=== PATIENT | male | born 1995 | race Two or more races ===

== ENCOUNTER 2025-07-28 09:26 | Emergency (ER) | payer OTHER, SELFPAY ==
[2025-07-28 09:49] VITALS: BP 130/77; PULSE 109; RESP 18; TEMP 38; O2SAT 97
[2025-07-28 09:54] VITALS: BP 130/77; PULSE 109; RESP 18; TEMP 38; O2SAT 97
--- NOTE | 2025-07-28 10:15 | ED.GENADUL_ITS ---
Discharge Plan Disposition Patient Disposition: Home Condition: Good Discharge Details Clinical Impression: Enlarged lymph node, Elevated LFTs Primary Care Provider: Unknown,Unknown ED Provider: Annelise Molina Discharge Instructions Additional Instructions: [place] [facility] biopsy of the pathologic appearing lymph node. You may reach [facility] at [phone] to schedule your appointment. A referral has been made to care management to help you establish care with a primary care provider. I recommend that you follow-up [facility] to continue outpatient evaluation into your symptoms and to recheck your blood work. I recommend that you avoid touching/squeezing your lymph node, as this can provide further aggravation and pain. Stable hydrated, drinking plenty of fluids throughout the day. You may continue to use ibuprofen 400 mg every 8 hours as needed for discomfort. I would recommend avoiding Tylenol and alcohol as your liver function tests are elevated. Return to emergency care if you develop new numbness/color change or weakness to the arm or if you are very worried and need to be rechecked again immediately. Referrals: Care Management [Provider Group] HPI General Date/Time Provider Initiated Documentation: 07/28/25 10:00 . HPI Narrative: Marshal is a 30-year-old male who presents to the emergency department today for evaluation of worsening right axilla abscess. He first noticed a lump in his right armpit noticed 2 weeks ago, grew from size of a cirilo to golf ball size in 4 days. He sought care at the medical center, was diagnosed with abscess. [facility] in [facility] suggested incision and drainage, but he opted for antibiotics due to ultrasound machine not working. Antibiotics ineffective, he reports that it has grown despite treatment antibiotics and warm compresses. Pain managed with Advil and Tylenol Fast Release, 1 Tylenol and 2 Advil twice daily for 10 days. Fevers have persisted, especially at night. Denies current headache, dizziness, congestion, sore throat, cough, chest pain, shortness of breath, nausea/vomiting, change in p.o. intake, abdominal pain, change in bowel or bladder function. No extremity erythema/swelling/numbness/tingling, weakness, or decreased ROM. Completed 2- week course of Bactrim as prescribed. Denies history of cancer, unusual weight loss, or other swollen lymph nodes. Denies significant past medical history such as IV drug use, immunocompromise, or recent antibiotics prior to most recent treatment. Related Data Allergies Allergy/AdvReac Type Severity Reaction Status Date / Time No Known Allergies Allergy Unverified 07/28/25 09:54 General Stated Complaint: GenMedical IRENE: 3 Exam Narrative Exam Narrative: General Appearance: Normal. Patient is alert and oriented, no acute distress Vital signs: Tachycardia noted, heart rate 109. Fever, temp 38.0 C Respiratory: Easy work of breathing, lungs clear to auscultation. Cardiovascular: Tachycardia noted, regular rhythm, normal heart sounds. Back, Musculoskeletal: Full range of motion in arms, 5/5 muscle strength. Sensation grossly intact Skin: Palpable, tender lump in right axilla proximal 3 cm diameter, tender to palpation, no fluctuance noted. Psychiatric: Normal. Course Vital Signs Vital signs: Vital Signs Temperature 38.0 C H 07/28/25 09:49 Pulse 109 H 07/28/25 09:49 Respiratory Rate 18 07/28/25 09:49 Blood Pressure 130/77 07/28/25 09:49 Pulse Oximetry 97 07/28/25 09:49 Temperature 38.0 C H 07/28/25 09:54 Temperature Source Temporal Artery Scan 07/28/25 09:54 Pulse 109 H 07/28/25 09:54 Respiratory Rate 18 07/28/25 09:54 Blood Pressure 130/77 07/28/25 09:54 Pulse Oximetry 97 07/28/25 09:54 Oxygen Delivery Method Room Air 07/28/25 09:54 Oxygen Flow Rate 0 07/28/25 09:54 Pain Level 8 07/28/25 09:54 Lab/Test Results Lab/Test Results: 07/28/25 10:01 Blood Blood Culture - Pending 07/28/25 10:01 Blood Blood Culture - Pending Medical Decision Making Initial Assessment: 30-year-old male with axillary lump, fever, and tachycardia. Differential Diagnosis includes but is not limited to: Abscess, enlarged lymph node, neoplasm ED Course: - IV Tylenol and Toradol administered. - IV fluids administered. - Pocus PERFORMED w Dr Gonzalez at bedside, no fluid collection noted consistent with abscess - CT right upper extremity ordered to further evaluate mass Independently interpreted the following tests: Inflammatory markers elevated, ESR 21, CRP 2.05. LFTs elevated, no previous available for comparison. CBC , lactate, and BMP unremarkable. CT upper extremity noted for pathological appearing lymph node to the right axilla. Marshal does not currently have a PCP. I discussed case with Dr. Langford, general surgeon. She does not perform FNA biopsies, will check with [facility] general surgery group to see if any of the surgeons there can perform this. [place] [facility] [place]. Patient overall well-appearing, post outpatient follow-up for further evaluation/management indicated. Discussed findings with patient, recommend close follow-up with PCP (referral made to help patient establish care with PCP) as well as interventional radiology at [facility]. Reviewed discharge instructions, including indications for return to emergency care. Patient voices agreement with plan of care Clinical Impression: - R Axillary lump, concerning for pathological lymph node - Elevated liver function tests Patient consented to the use of [facility] Imaging Data Radiologic Study: Radiologist's impression: PROCEDURE INFORMATION: Exam: CT Right Upper Extremity With Contrast Exam date and time: 07/28/2025 11:12 AM Age: 30 years old Clinical indication: Other: Enlarged lymph node in axilla TECHNIQUE: Imaging protocol: Computed tomography of the right upper extremity with contrast. Contrast material: OMNIPAQUE 350; Contrast volume: 100 ml; Contrast route: INTRAVENOUS (IV); COMPARISON: No relevant prior studies available. FINDINGS: Bones/joints: Skeletal structures are intact. There is no fractures. No lytic or blastic disease. Soft tissues: No edema in the muscles. No localized fluid collection or abscess. Large right axillary lymph node with lobulated borders and edematous perinodal fat. The lymph node measures 4.2 cm IMPRESSION: Abnormal study. Pathological appearing lymph node right axilla. Recommend FNA biopsy PFSH All Active Problems (Updated 07/28/25 @ 12:22 by Annelise Hylton) Elevated LFTs (Acute) Enlarged lymph node (Acute) Social History Smoking risk assessment performed?: No
[2025-07-28 10:25] LABS: Abs Immature Grans 0.06 10^3/uL (0.0-0.06); HCT 41.1 % (40.0-50.0); HGB 13.7 g/dL (13.5-17.5); Immature Grans % 0.8 %; MCH 30.1 pg (27.0-33.0); MCHC 33.3 % (32.0-36.0); MCV 90 fL (80-95); MPV 8.9 fL (8.0-11.0); Platelet Count 347 10^3/uL (130-400); RBC 4.55 10^6/uL (4.36-5.78); RDW 12.5 % (11.8-14.1); RDW-SD 41.5 fL; WBC 7.76 10^3/uL (4.4-10.8)
[2025-07-28 10:28] LABS: ESR 21 mm/hr (0-15)
[2025-07-28] MEDS: Acetaminophen 325 MG TAB 650 MG PO (10:37)
[2025-07-28] MEDS: Ketorolac 15 MG/ML VIAL IVP (10:37)
[2025-07-28] MEDS: Normal Saline 1,000 ML 1000 ML IV (10:38)
[2025-07-28 10:44] LABS: ALT 78 U/L (16-63); AST 59 U/L (15-37); Albumin 3.8 g/dL (3.4-5.0); Alkaline Phosphatase 206 U/L (46-116); Anion Gap 7.1 mmol/L (3-11); BUN 11 mg/dL (7-18); Bilirubin, Total 0.4 mg/dL (0.2-1.0); C-Reactive Protein 2.05 mg/dL (<or=0.5); CO2 28.9 mmol/L (21.0-32.0); Calcium 8.7 mg/dL (8.5-10.1); Chloride 101 mmol/L (98-107); Estimated GFR 102.55 (mL/min/1.73m2); Glucose 99 mg/dL (74-106); Potassium 4.2 mmol/L (3.5-5.1); Sodium 137 mmol/L (136-145); Total Protein 8.1 g/dL (6.4-8.2)
--- NOTE | 2025-07-28 10:52 | DI.CT_ITS ---
Exam(s) CT UPPER EXTREMITY RT W EXAM: CT UPPER EXTREMITY RT W CLINICAL HISTORY: enlarged lymph node in axilla (CT just axilla) TECHNIQUE: Imaging Protocol: Axial computed tomography images with coronal and sagittal reformatted images were created and reviewed. CONTRAST MATERIAL: Intravenous: Omnipaque 350 Contrast volume:100 contrast route:IV - COMPARISON: US POCUS EXAM from 07/28/2025 FINDINGS: SOFT TISSUES: There is an enlarged pathologic appearing lymph node in the right axilla which measures approximately 4 x 2.5 x 3 cm. Non uniform density both enhancement and hypodense internal area noted. There is surrounding streaking. OSSEOUS: No significant osseous findings. IMPRESSION: Abnormal pathologic appearing lymph node in the right axilla. Surrounding streaking. Correlation with clinical history recommended. This may be an infected lymph node or neoplastic lymph node or a combination thereof. Recommend sampling RADIATION DOSE DELIVERED: 233.42mGy.cm Total DLP DATA REPOSITORY: All CT scans at this facility are submitted to the National Radiology Data Registry (NRDR) Dose Index Registry (DIR) with the [employer] (ACR). RADIATION OPTIMIZATION: All CT scans at this facility use at least one of these dose optimization techniques: automated exposure control; mA and/or kV adjustment per patient size (includes targeted exams where dose is matched to clinical indication); or iterative reconstruction.
[2025-07-28] MEDS: Lidocaine/Epinephri/Tetracaine Topical Gel 3 ML TP (10:58)
[2025-07-28] MEDS: Normal Saline Flush 10 ML SYR IVP (11:10)
[2025-07-28] MEDS: Omnipaque 350 MG/ML 100 ML BTL IJ (11:12)
[2025-07-28] MEDS: Normal Saline - Diluent 50 ML VIAL IJ (11:12)
--- NOTE | 2025-07-28 11:49 | DI.VRAD_ITS ---
PROCEDURE INFORMATION: Exam: CT Right Upper Extremity With Contrast Exam date and time: 07/28/2025 11:12 AM Age: 30 years old Clinical indication: Other: Enlarged lymph node in axilla TECHNIQUE: Imaging protocol: Computed tomography of the right upper extremity with contrast. Contrast material: OMNIPAQUE 350; Contrast volume: 100 ml; Contrast route: INTRAVENOUS (IV); COMPARISON: No relevant prior studies available. FINDINGS: Bones/joints: Skeletal structures are intact. There is no fractures. No lytic or blastic disease. Soft tissues: No edema in the muscles. No localized fluid collection or abscess. Large right axillary lymph node with lobulated borders and edematous perinodal fat. The lymph node measures 4.2 cm IMPRESSION: Abnormal study. Pathological appearing lymph node right axilla. Recommend FNA biopsy. Dictated and Authenticated by: Matt García MD. Orderin Arsalan Castelan MD
[2025-07-28 12:18] VITALS: BP 111/66; PULSE 92; TEMP 37
[2025-07-28 12:34] VITALS: RESP 16
[2025-07-28 12:41] VITALS: BP 114/72; PULSE 94; RESP 16; O2SAT 97
--- NOTE | 2025-07-29 16:34 | NUR.NOTE ---
Access chart to determine if a referral had been put in on this patient. Nursing Note:
== END 2025-07-28 12:42 | disposition home or self-care (01) ==
PROVIDERS: Emergency Provider Nurse Practitioner Family
DX: R59.0 Localized enlarged lymph nodes (principal); R78.89 Finding of other specified substances, not normally found in blood; R50.9 Fever, unspecified
CPT/HCPCS: 36415; 76882; 80053; 85652; 87040; 96361; 96374; 99285; 73201; 83605; 85025; 86140; 99284; J1885; J3490

== ENCOUNTER 2025-08-01 15:00 | Outpatient (REF) | payer OTHER, SELFPAY ==
--- NOTE | 2025-08-01 14:40 | LYM_PTH ---
PATIENT: Marshal Calderon LOC: [facility] U#:[id number] AGE/SX: 30/M ROOM: RE08/01/[address]: Lamar Thompson MD : 1995 BED: DIS: 08/01/2025 SPEC #: [id number] RECD: 08/01/25 17:09 STATUS: GREG REQ #: [id number] YANN: 08/01/25 14:[address]: Lamar Thompson DEPT: Surgical Specimen RECD BY: Yissel Granados ENTERED: 08/01/25 17:11 SP TYPE: LYM OTHR DR: Unknown,Unknown Tissues: 1 - LYMPH NODE BIOPSY 2 - FLOW CYTOMETRY NODE/TISSUE Procedures: GROSS AND MICRO LEVEL 4 IMMUNOPEROXIDASE STAIN FLOW CYTOMETRY LYMPHOMA PNL SPECIAL STAIN 1 Comments: [id number] (FLOW CYTOMETRY [id number])
== END 2025-08-01 15:01 | disposition home or self-care (01) ==
LOC: LBN 15:00
PROVIDERS: Visit Provider Surgery
DX: R59.9 Enlarged lymph nodes, unspecified (principal)
CPT/HCPCS: 87102; 87116; 87206; 88305; 87070; 87075; 87205; 88184; 88185; 88312; 88361

== ENCOUNTER 2025-08-09 16:31 | Emergency (ER) | payer OTHER, SELFPAY ==
[2025-08-09 16:33] VITALS: BP 129/75; PULSE 85; RESP 16; TEMP 36.9; O2SAT 98
--- NOTE | 2025-08-09 16:46 | W.ED.GENAD ---
Discharge Plan Disposition Patient Disposition: Home Condition: Stable Discharge Details Clinical Impression: Encounter for wound re-check Primary Care Provider: Unknown,Unknown ED Provider: Davina Sims Home Meds and New Rx's Prescriptions: No Action rifampin 300 mg capsule 300 mg PO DAILY Qty: 14 0RF azithromycin 500 mg tablet 500 mg PO DAILY 14 Days Qty: 14 0RF Discharge Instructions Instructions: Taking care of cuts, scrapes, and puncture wounds Additional Instructions: It sounds like you are on the road to recovery. Please continue to follow your previously prescribed regimen. You have been placed on a care management list to assist you in getting a primary care provider follow-up appointment. You only need to return to the emergency department for any worsening such as increased swelling redness fever or concerns. Referrals: [facility] Medicine [Provider Group] - 5 days Referral Note: Call for follow up HPI General Mode of arrival: ambulatory. Date/Time Provider Initiated Documentation: 08/09/25 16:33. Limitations to Documentation: no limitations. Information obtained by: patient, RN notes reviewed and old records reviewed. HPI Narrative: 30 year old male presents to the ER for a follow up regarding a right axillary lymph node that was I&D'd by general surgery, patient reports he is doing much better and is currently taking antibiotics. Awaiting set up for PCP. Related Data Home Medications ?Medication ?Instructions ?Recorded ?Confirmed azithromycin 500 mg tablet 500 mg PO DAILY 14 days #14 tabs 08/01/25 08/09/25 rifampin 300 mg capsule 300 mg PO DAILY #14 caps 08/01/25 08/09/25 Previous Rx's ?Medication ?Instructions ?Recorded azithromycin 500 mg tablet 500 mg PO DAILY 14 days #14 tabs 08/01/25 rifampin 300 mg capsule 300 mg PO DAILY #14 caps 08/01/25 Allergies Allergy/AdvReac Type Severity Reaction Status Date / Time No Known Allergies Allergy Verified 08/09/25 16:35 General Stated Complaint: Recheck IRENE: 4 Course Vital Signs Vital signs: Vital Signs Temperature 36.9 C 08/09/25 16:33 Pulse 85 08/09/25 16:33 Respiratory Rate 16 08/09/25 16:33 Blood Pressure 129/75 08/09/25 16:33 Pulse Oximetry 98 08/09/25 16:33 Temperature 36.9 C 08/09/25 16:33 Temperature Source Tympanic 08/09/25 16:33 Pulse 85 08/09/25 16:33 Respiratory Rate 16 08/09/25 16:33 Blood Pressure 129/75 08/09/25 16:33 Pulse Oximetry 98 08/09/25 16:33 Pain Level 0 08/09/25 16:33 Medical Decision Making Patient reports improvement in condition. Follow-up this patient management list for PCP establishment. This text was generated using [employer] dictation system, please disregard any oddities of phrase or misspellings. PFSH All Active Problems (Updated 08/09/25 @ 16:50 by Davina Sims NP) Encounter for wound re-check (Acute) Persistent fever (Acute) Cat scratch fever (Acute) Axillary lymphadenopathy (Acute) Elevated LFTs (Acute) Enlarged lymph node (Acute) Social History Smoking/Tobacco Use Status: Never Smoking risk assessment performed?: Yes Alcohol Intake: never Substance use type: does not use Do you feel safe at home: Yes Do you feel safe in your relationship?: Yes
== END 2025-08-09 17:02 | disposition home or self-care (01) ==
PROVIDERS: Emergency Provider Registered Nurse Emergency
DX: R59.0 Localized enlarged lymph nodes (principal)
CPT/HCPCS: 99281 ×2